=== PATIENT | female | born 1995 | race Caucasian/White ===

== ENCOUNTER 2024-04-23 09:37 | Outpatient (CLI) | payer OTHER, SELFPAY ==
--- NOTE | ~2024-04-23 | XR_ITS ---
EXAMINATION: XR lumbar spine 2-3V, XR sacroiliac joints min 3V, XR hip BI 2V w AP pelvis DATE: 04/23/2024 10:19 INDICATION: Low back pain TECHNIQUE: 1. Anteroposterior and lateral views of the lumbar spine, and cone-down lateral view of the lumbosacr al junction were obtained. 2. AP and left and right oblique views of the bilateral sacroiliac joints were obtained. 3. AP view of the pelvis and AP and frog-leg lateral views of both the left and right hips were obtai esha. COMPARISON: Lumbar spine radiographs dated FINDINGS: Lumbar spine: A degree lumbar levocurvature. Sagittal alignment is normal. Vertebral body and disc heights are norm al. No significant lumbar facet osteoarthritis. Visualized lower lungs are clear with no pleural effu anupam. Normal bowel gas pattern. Pelvis, hips and sacroiliac joints: Alignment is normal. Sacral arches are intact. No fracture or suspected osteonecrosis. Bilateral hip and sacroiliac joint spaces appear relatively concern. No erosions to suggest inflammatory sacroiliit is. IMPRESSION: 1. Mild lumbar levocurvature. Otherwise unremarkable radiographs of the lumbar spine and pelvis inclu ding the bilateral hips and sacroiliac joints. Reviewed, dictated and finalized at location B. OR [employer] IMPRESSION: 1. Mild lumbar levocurvature. Otherwise unremarkable radiographs of the lumbar spine and pelvis including the bilateral hips and sacroiliac joints. IMPRESSION: 1. Mild lumbar levocurvature. Otherwise unremarkable radiographs of the lumbar spine and pelvis including the bilateral hips and sacroiliac joints.
== END 2024-04-23 09:38 | disposition home or self-care (01) ==
LOC: MICIMG 09:40
PROVIDERS: PCP Internal Medicine; Visit Provider Internal Medicine
DX: M41.86 Other forms of scoliosis, lumbar region (principal)
CPT/HCPCS: 72100; 72202; 73521